=== PATIENT | male | born 2000 | race Caucasian/White ===

== ENCOUNTER 2021-10-26 11:33 | Emergency (ER) | payer OTHER ==
[~2021-10-26] VITALS: Ht 177.8 cm; Wt 68.0 kg
[~2021-10-26 11:33] MED LIST: CEPHALEXIN 500500 M3 PO; IBUPROFEN 600600 M1 PO
[2021-10-26] MEDS ORDERED: CEPHALEXIN500 MG PO (11:59)
[2021-10-26 12:25] VITALS: BP 143/66
== END 2021-10-26 12:26 | disposition home or self-care (01) ==
LOC: M.ERS 11:33
DX: S61.216A Laceration without foreign body of right little finger without damage to nail, initial encounter (principal); W27.0XXA Contact with workbench tool, initial encounter; Y93.89 Activity, other specified; Y92.89 Other specified places as the place of occurrence of the external cause; Y99.8 Other external cause status